=== PATIENT | female | born 1940 | race Two or more races ===

== ENCOUNTER → 2017-01-20 | Outpatient (CLI) | payer MEDICARE, OTHER ==
--- NOTE | 2017-01-20 10:02 | RADRPT ---
PROCEDURE: XR Knee. CLINICAL INDICATION: Left knee pain TECHNIQUE: AP, lateral, tunnel and sunrise view of the left knee were obtained. The images reviewe d on a PACS workstation. COMPARISON: None. FINDINGS: Diffuse osteopenia is identified. The osseous structures appear intact. No destructive bony lesion s are observed. Moderate narrowing of the lateral joint compartment is identified. Mild narrowing of the medial joint compartment is seen. Trace suprapatellar joint effusion is seen. Vascular calc ifications are seen posterior to the knee. IMPRESSION: Osteopenia. 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 Mild osteoarthritis of the medial joint compartment. Trace suprapatellar joint effusion. Vascular calcifications. If further characterization is needed CT or MRI could be helpful. RPTAT: AA .Neville Chang MD, Date Time Electronically viewed and signed by .Neville Chang MD, on 01/20/2017 10:01 .P/
== END | disposition home or self-care (01) ==
LOC: HKI 09:13
PROVIDERS: ATTEND Orthopaedic Surgery
DX: M25.562 Pain in left knee (principal); M17.12 Unilateral primary osteoarthritis, left knee; S83.272A Complex tear of lateral meniscus, current injury, left knee, initial encounter; M84.362A Stress fracture, left tibia, initial encounter for fracture
CPT/HCPCS: 20610; 73564; J7327

== ENCOUNTER → 2017-03-06 | Outpatient (CLI) | payer MEDICARE, OTHER | END | disposition home or self-care (01) | LOC: HKI 09:42 | PROVIDERS: ATTEND Orthopaedic Surgery | DX: M25.562 Pain in left knee (principal); M17.12 Unilateral primary osteoarthritis, left knee | CPT/HCPCS: G0463 ==